=== PATIENT | female | born 1970 | race Caucasian/White ===

== ENCOUNTER 2017-09-24 07:32 | Day surgery (SDC) | payer OTHER ==
[2017-09-24 10:42] VITALS: TEMP 97.8
[2017-09-24] MEDS ORDERED: IRON SUCROSE INJECTION 100 MG in SODIUM CHLORIDE 100 ML IVPB ONE (11:00)
[2017-09-24 12:07] VITALS: BP 102/69; PULSE 54
== END 2017-09-24 11:45 | disposition home or self-care (01) ==
LOC: JONCNONCHE 07:32 → J7W 09:26 → JONCNONCHE 11:45
PROVIDERS: ATTEND Internal Medicine Hematology & Oncology
PROC: 3E033GC Introduction of Other Therapeutic Substance into Peripheral Vein, Percutaneous Approach (ICD-10-PCS; principal; 2017-09-24)
DX: D50.9 Iron deficiency anemia, unspecified (principal)
CPT/HCPCS: 96365; J1756

== ENCOUNTER 2017-10-01 07:31 | Day surgery (SDC) | payer OTHER ==
[2017-10-01] MEDS ORDERED: IRON SUCROSE INJECTION 100 MG in SODIUM CHLORIDE 100 ML IVPB ONE (10:00)
[2017-10-01 11:32] VITALS: TEMP 97.7
[2017-10-01 11:34] VITALS: BP 98/68; PULSE 56
== END 2017-10-01 10:50 | disposition home or self-care (01) ==
LOC: JONCNONCHE 07:31 → J7W 09:30 → JONCNONCHE 10:50
PROVIDERS: ATTEND Internal Medicine Hematology & Oncology
PROC: 3E033GC Introduction of Other Therapeutic Substance into Peripheral Vein, Percutaneous Approach (ICD-10-PCS; principal; 2017-10-01)
DX: D50.9 Iron deficiency anemia, unspecified (principal)
CPT/HCPCS: 96365; J1756

== ENCOUNTER 2017-10-08 07:28 | Day surgery (SDC) | payer OTHER ==
[2017-10-08] MEDS ORDERED: IRON SUCROSE INJECTION 100 MG in SODIUM CHLORIDE 100 ML IVPB ONE (10:00)
[2017-10-08 14:07] VITALS: TEMP 97.8
[2017-10-08 14:09] VITALS: BP 101/67; PULSE 60
== END 2017-10-08 10:45 | disposition home or self-care (01) ==
LOC: JONCNONCHE 07:28 → J7W 09:30 → JONCNONCHE 10:45
PROVIDERS: ATTEND Internal Medicine Hematology & Oncology
PROC: 3E033GC Introduction of Other Therapeutic Substance into Peripheral Vein, Percutaneous Approach (ICD-10-PCS; principal; 2017-10-08)
DX: D50.9 Iron deficiency anemia, unspecified (principal)
CPT/HCPCS: 96365; J1756

== ENCOUNTER 2017-10-15 07:08 | Day surgery (SDC) | payer OTHER ==
[2017-10-15] MEDS ORDERED: IRON SUCROSE INJECTION 100 MG in SODIUM CHLORIDE 100 ML IVPB ONE (09:00)
[2017-10-15 12:04] VITALS: BP 104/65; PULSE 55; TEMP 98.1
== END 2017-10-15 12:00 | disposition home or self-care (01) ==
LOC: JONCNONCHE 07:08 → J7W 09:57 → JONCNONCHE 12:00
PROVIDERS: ATTEND Internal Medicine Hematology & Oncology
PROC: 3E033GC Introduction of Other Therapeutic Substance into Peripheral Vein, Percutaneous Approach (ICD-10-PCS; principal; 2017-10-15)
DX: D50.9 Iron deficiency anemia, unspecified (principal)
CPT/HCPCS: 96365; J1756

== ENCOUNTER 2017-10-22 07:32 | Day surgery (SDC) | payer OTHER ==
[2017-10-22] MEDS ORDERED: IRON SUCROSE INJECTION 100 MG in SODIUM CHLORIDE 100 ML IVPB ONE (09:00)
[2017-10-22 16:43] VITALS: BP 98/67; PULSE 59; TEMP 97.7
== END 2017-10-22 11:45 | disposition home or self-care (01) ==
LOC: JONCNONCHE 07:32 → JONCCHEMO 07:32 → J7W 09:46 → JONCNONCHE 11:45
PROVIDERS: ATTEND Internal Medicine Hematology & Oncology
PROC: 3E033GC Introduction of Other Therapeutic Substance into Peripheral Vein, Percutaneous Approach (ICD-10-PCS; principal; 2017-10-22)
DX: D50.9 Iron deficiency anemia, unspecified (principal)
CPT/HCPCS: 96365; J1756

== ENCOUNTER 2017-10-29 07:31 | Day surgery (SDC) | payer OTHER ==
[2017-10-29] MEDS ORDERED: IRON SUCROSE INJECTION 100 MG in SODIUM CHLORIDE 100 ML IVPB ONE (09:00)
[2017-10-29 16:09] VITALS: BP 91/54; PULSE 60; TEMP 98.3
== END 2017-10-29 11:10 | disposition home or self-care (01) ==
LOC: JONCNONCHE 07:31 → J7W 09:33 → JONCNONCHE 11:10
PROVIDERS: ATTEND Internal Medicine Hematology & Oncology
PROC: 3E033GC Introduction of Other Therapeutic Substance into Peripheral Vein, Percutaneous Approach (ICD-10-PCS; principal; 2017-10-29)
DX: D50.9 Iron deficiency anemia, unspecified (principal)
CPT/HCPCS: 96365; J1756

== ENCOUNTER 2017-11-12 08:12 | Day surgery (SDC) | payer OTHER ==
[2017-11-12] MEDS ORDERED: IRON SUCROSE INJECTION 100 MG in SODIUM CHLORIDE 100 ML IVPB ONE (10:00)
[2017-11-12 10:04] VITALS: TEMP 98.7
[2017-11-12 10:55] VITALS: BP 86/56; PULSE 61
== END 2017-11-12 11:00 | disposition home or self-care (01) ==
LOC: JONCNONCHE 08:12 → J7W 09:46 → JONCNONCHE 11:04
PROVIDERS: ATTEND Internal Medicine Hematology & Oncology
PROC: 3E033GC Introduction of Other Therapeutic Substance into Peripheral Vein, Percutaneous Approach (ICD-10-PCS; principal; 2017-11-12)
DX: D50.9 Iron deficiency anemia, unspecified (principal)
CPT/HCPCS: 96365; J1756

== ENCOUNTER 2024-11-09 09:29 | Day surgery (SDC) | payer OTHER ==
[2024-11-03 17:16] VITALS: BMI 20.2
[2024-11-09] MEDS ORDERED: PROPOFOL 40 ML ONE (10:24)
[2024-11-09] MEDS ORDERED: LIDOCAINE HCL/PF 2% SDV 5ML VIAL ONE (10:24)
[2024-11-09 11:30] VITALS: RESP 18; TEMP 97.2
[2024-11-09 11:57] VITALS: BP 100/43; PULSE 62
== END 2024-11-09 11:45 | disposition home or self-care (01) ==
LOC: FASU-ENDO 09:29
PROVIDERS: ATTEND Internal Medicine Gastroenterology
PROC: 0DB98ZX Excision of Duodenum, Via Natural or Artificial Opening Endoscopic, Diagnostic (ICD-10-PCS; 2024-11-09)
PROC: 0DB68ZX Excision of Stomach, Via Natural or Artificial Opening Endoscopic, Diagnostic (ICD-10-PCS; 2024-11-09)
PROC: 0DJD8ZZ Inspection of Lower Intestinal Tract, Via Natural or Artificial Opening Endoscopic (ICD-10-PCS; principal; 2024-11-09 10:44)
DX: Z12.11 Encounter for screening for malignant neoplasm of colon (principal); K64.0 First degree hemorrhoids; K64.4 Residual hemorrhoidal skin tags; K29.50 Unspecified chronic gastritis without bleeding; K22.89 Other specified disease of esophagus; D50.9 Iron deficiency anemia, unspecified
CPT/HCPCS: 88305-TC; 88341-TC; 88342-TC

== ENCOUNTER 2024-12-29 14:44 | Day surgery (SDC) | payer OTHER ==
[2024-12-29] MEDS: IRON SUCROSE INJECTION 300 MG in SODIUM CHLORIDE 250 ML IVPB ONE (15:00)
[2024-12-29 16:54] VITALS: RESP 20; TEMP 98
[2024-12-29 16:57] VITALS: PULSE 59
[2025-01-01 07:10] VITALS: BP 107/60
== END 2024-12-29 17:01 | disposition home or self-care (01) ==
LOC: JONCNONCHE 14:44 → J7W 14:55 → JONCNONCHE 17:01
PROVIDERS: ATTEND Internal Medicine Hematology & Oncology
PROC: 3E033GC Introduction of Other Therapeutic Substance into Peripheral Vein, Percutaneous Approach (ICD-10-PCS; principal; 2024-12-29)
DX: D50.9 Iron deficiency anemia, unspecified (principal)
CPT/HCPCS: 96365; 96366; J1756